=== PATIENT | male | born 2000 | race American Indian/Alaskan Native ===

== ENCOUNTER 2020-09-17 16:46 | Emergency (ER) | payer SELFPAY ==
[2020-09-17 18:43] VITALS: BP 126/69
--- NOTE | 2020-09-17 19:55 | XRay Report ---
CHEST 2 VIEWS INDICATION: cough, hemoptysis. COMPARISON: FINDINGS: Support devices: None. Heart: Within normal limits. Lungs: No acute air space or interstitial disease. Pleura: No significant pleural effusion. No pneumothorax. Additional findings: None. IMPRESSION: 1. No acute findings. Signer Name: Desmond Kapadia MD Signed: 09/17/2020 7:50 PM Workstation Name: [id number]
[2020-09-17] MEDS ORDERED: HYDROcodone/ACETAMINOPHEN 5-325 MG TAB PO STA (23:01)
--- NOTE | 2020-09-17 23:22 | Emergency Department Report ---
- General Chief Complaint: Upper Respiratory Infection Stated Complaint: VOMITING BLOOD/EAR PAIN Time Seen by Provider: 09/17/20 22:19 Source: patient Mode of arrival: Ambulatory Limitations: No Limitations - History of Present Illness Initial Comments: 20-year-old male with no significant past medical history with exception of asthma presents emerged department complaining of a 1 day history of cough congestion with mucus production ear pain and throat irritation and swelling. No nausea no, no vomiting, no diarrhea, no chest pain or palpitations, no no rashes or sweats. MD Complaint: fever, sore throat -: Gradual Severity: mild Consistency: constant Associated Symptoms: rhinorrhea, nasal congestion, sore throat. denies: vomiting, confusion, weight loss, epistaxis - Related Data Previous Rx's Medication Instructions Recorded Last Taken Type Amoxicillin/Potassium Clav 1 each PO BID #20 tablet 09/17/20 Unknown Rx [Augmentin 875-125 Tablet] Lidocaine Viscous 2% 5 ml MM Q3H PRN #120 udc 09/17/20 Unknown Rx Allergies Allergy/AdvReac Type Severity Reaction Status Date / Time No Known Allergies Allergy Unverified 09/17/20 18:39 ED Review of Systems ROS: Stated complaint: VOMITING BLOOD/EAR PAIN Other details as noted in HPI Comment: All other systems reviewed and negative ED Past Medical Hx - Past Medical History Previous Medical History?: No Hx Asthma: Yes - Surgical History Past Surgical History?: No - Social History Smoking Status: Current Every Day Smoker - Medications Home Medications: Home Medications Medication Instructions Recorded Confirmed Last Taken Type Amoxicillin/Potassium Clav 1 each PO BID #20 tablet 09/17/20 Unknown Rx [Augmentin 875-125 Tablet] Lidocaine Viscous 2% 5 ml MM Q3H PRN #120 udc 09/17/20 Unknown Rx ED Physical Exam - General Limitations: No Limitations General appearance: alert, in no apparent distress - Head Head exam: Present: atraumatic, normocephalic - Eye Eye exam: Present: normal appearance - ENT ENT exam: Present: mucous membranes moist, other (Pharynx is red with erythema some mild swelling but tongue and uvula midline airway still patent no exudate noted. Left ear has tragal tenderness with palpation small effusion behind the tympanic membrane is noted. No lymphadenopathy is appreciated.) - Neck Neck exam: Present: normal inspection - Respiratory Respiratory exam: Present: normal lung sounds bilaterally. Absent: respiratory distress - Cardiovascular Cardiovascular Exam: Present: regular rate, normal rhythm. Absent: systolic murmur, diastolic murmur, rubs, gallop - GI/Abdominal GI/Abdominal exam: Present: soft, normal bowel sounds - Rectal Rectal exam: Present: deferred - Extremities Exam Extremities exam: Present: normal inspection - Back Exam Back exam: Present: normal inspection - Neurological Exam Neurological exam: Present: alert, oriented X3 - Psychiatric Psychiatric exam: Present: normal affect, normal mood - Skin Skin exam: Present: warm, dry, intact, normal color. Absent: rash ED Course Vital Signs 09/17/20 18:41 Temperature 98.1 F Pulse Rate 75 Respiratory 20 Rate Blood Pressure 126/69 O2 Sat by Pulse 96 Oximetry ED Medical Decision Making - Radiology Data Radiology results: report reviewed Shows no acute findings - Medical Decision Making Problem 1 sore throat 20-year-old male with no history of any compromised nontoxic appearance patient is euvolemic with no trismus no airway compromise unable to tolerate p.o. given history and examination low suspicion for this presentation being caused by peritonsillar abscess, Zane, bacterial tracheitis, acute HIV, epiglottitis, retropharyngeal abscess. Problem 2 cough This patient presents with acute cough, most consistent with . Differential diagnosis includes . Presentation not consistent with acute bacterial pneumonia, influenza, asthma, transient airway hyperresponsiveness. Presentation not consistent with chronic causes of cough (including GERD, asthma, postnasal discharge, medication side effect, CHF, lung cancer or mass). CXR chest x-ray was reviewed shows no acute findings Plan: , supportive care, reassess Critical care attestation.: If time is entered above; I have spent that time in minutes in the direct care of this critically ill patient, excluding procedure time. ED Disposition Clinical Impression: Pharyngitis, Cough Disposition: DC-01 TO HOME OR SELFCARE Is pt being admited?: No Does the pt Need Aspirin: No Condition: Stable Instructions: Sore Throat, Pharyngitis Prescriptions: Amoxicillin/Potassium Clav [Augmentin 875-125 Tablet] 1 each PO BID #20 tablet Lidocaine Viscous 2% 5 ml MM Q3H PRN #120 udc PRN Reason: Pain, Moderate (4-6) Referrals: PRIMARY CARE, [Primary Care Provider] - 3-5 Days [facility] [Provider Group] - 3-5 Days
== END 2020-09-17 23:55 | disposition home or self-care (01) ==
LOC: ED 16:46
DX: J02.9 Acute pharyngitis, unspecified (principal); R05 Cough; R50.9 Fever, unspecified; J45.909 Unspecified asthma, uncomplicated; F17.200 Nicotine dependence, unspecified, uncomplicated; Z79.899 Other long term (current) drug therapy
CPT/HCPCS: 71046; 99283